=== PATIENT | female | born 1980 | race Caucasian/White ===

== ENCOUNTER → 2020-01-28 16:10 | Outpatient (BNVA) | payer OTHER, SELFPAY | PROVIDERS: Family Provider Family Medicine; Visit Provider Nurse Practitioner Women's Health | DX: Z01.419 Encounter for gynecological examination (general) (routine) without abnormal findings (principal); Z30.44 Encounter for surveillance of vaginal ring hormonal contraceptive device | CPT/HCPCS: 88175 ==

== ENCOUNTER → 2022-06-12 15:22 | Outpatient (BNVA) | payer OTHER, SELFPAY | PROVIDERS: Family Provider Family Medicine; Visit Provider Student in an Organized Health Care Education/Training Program | DX: S83.8X1A Sprain of other specified parts of right knee, initial encounter (principal); X58.XXXA Exposure to other specified factors, initial encounter | CPT/HCPCS: 73560; 73565 ==

== ENCOUNTER 2022-07-06 12:54 | Outpatient (CLI) | payer OTHER, SELFPAY ==
--- NOTE | 2022-07-06 13:00 | MR_ITS ---
WS: [id number] MRI RIGHT KNEE NONCONTRAST TECHNIQUE: Axial PD, coronal PD fat sat, coronal PD, sagittal PD, and sagittal PD fat-sat images obta ined. CLINICAL INFORMATION: knee pain COMPARISON: None. FINDINGS: Distal quadriceps and patella tendons are intact. Normal ACL and PCL. Tiny suprapatellar effusion. Mi ld chondromalacia patella. No subchondral edema. Normal medial and lateral patellar retinaculum. Ho[employer] D[employer] norma thinning of the medial and lateral meniscus advanced for patient this age. Horizontal tear involving the posterior horn medial meniscus extending to the articular surface. Per ipheral extrusion of the medial meniscus. Moderate joint space narrowing medial joint compartment wit h grade II to III chondromalacia. Medial and lateral collateral ligaments are intact. Normal popliteus. MR/MR knee RT wo con* [id number] IMPRESSION: 1. ACL and PCL are intact. 2. Horizontal tear involving posterior horn medial meniscus extends to the art icular surface. Peripheral extrusion of the medial meniscus. 3. 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 4. Mild chondromalacia patella with small effusion. 5. No other acute findings. Outbridge grading: grade III: partial-thickness cartilage loss with focal ulcer ation
== END 2022-07-06 12:55 | disposition home or self-care (01) ==
LOC: RAD 12:57
PROVIDERS: PCP Family Medicine; Visit Provider Student in an Organized Health Care Education/Training Program
DX: S83.249A Other tear of medial meniscus, current injury, unspecified knee, initial encounter (principal); X58.XXXA Exposure to other specified factors, initial encounter; M22.41 Chondromalacia patellae, right knee
CPT/HCPCS: 73721

== ENCOUNTER 2022-08-30 14:09 | Outpatient (CLI) | payer OTHER, SELFPAY ==
--- NOTE | 2022-08-30 14:20 | MM_ITS ---
WS: [id number] BILATERAL 3D TOMOSYNTHESIS DIGITAL SCREENING MAMMOGRAPHY WITH CAD CLINICAL INFORMATION: SCREENING HISTORY: Screening mammogram. No current complaints. COMPARISON: 2017 RIGHT breast diagnostic mammography TECHNIQUE: Bilateral CC and MLO views. FINDINGS: The breasts are composed of heterogeneous fibroglandular density tissue, which can limit the detectio n of small underlying mass lesions. No suspicious mass, asymmetry, calcifications, or architectural d istortion. No evidence of malignancy. A few incidental punctate calcifications. MM/[place] [id number] IMPRESSION: BI-RADS: 2-Benign FOLLOW UP: 1 Year Follow-up Recommend return to annual screening mammography.
== END 2022-08-30 14:10 | disposition home or self-care (01) ==
PROVIDERS: PCP Family Medicine; Visit Provider Nurse Practitioner Women's Health
DX: Z12.31 Encounter for screening mammogram for malignant neoplasm of breast (principal)
CPT/HCPCS: 77063; 77067

== ENCOUNTER 2022-11-14 06:42 | Day surgery (SDC) | payer OTHER, SELFPAY ==
[2022-11-13 11:06] VITALS: BMI 41.1
[2022-11-14] VITALS (12 sets, daily range): BP systolic 139–195; BP diastolic 76–119; PULSE 85–110; RESP 17–20; TEMP 36.1–36.7; O2SAT 94–100
[2022-11-14] MEDS: sodium chloride 0.9% 1,000 ML 30 ML IV (07:00)
[2022-11-14] MEDS: acetaminophen 1,000 MG/100 ML PIGGYBACK 400 MG IV (07:00)
[2022-11-14] MEDS: ketorolac 30 mg/mL INJ IVP (07:00)
[2022-11-14 07:02] LABS: OR HCG Qualitative Urine Negative (Negative)
--- NOTE | 2022-11-14 07:11 | ANES.PREANE2 ---
Pre-Anesthetic Assessment Height/Weight: Height 1.78 m Weight 130.181 kg Temp Pulse Resp BP Pulse Ox O2 Del Method 97.0 F L 100 18 195/119 98 Room Air 11/14/22 06:53 11/14/22 06:53 11/14/22 06:53 11/14/22 06:53 11/14/22 06:53 11/14/22 06:54 Preop Diagnosis: Right knee medial meniscus tear Operation Date: 11/14/22 08:10 Proposed Procedures p right knee diagnostic and surgical arthroscopy with partial medial meniscectomy.??[id number],S83.8X1A(Right) - Demetris Joy, Familial anesthetic complications: ponv Was Beta Nba taken within 24 hours: N/A Was Clonidine taken within 24 hours: N/A Last intake: Intake Last Liquid Date 11/13/22 Last Liquid Time 20:00 Last Solid Date 11/13/22 Last Solid Time 20:00 Social No alcohol and No tobacco Exam alert, oriented x 3, clear to auscultation bilaterally and regular rate & rhythm Airway Mallampati: Class II Dentition: full Metabolic Morbid Obesity Anesthetic Plan ASA status: 2 Anesthesia: General and Regional (specify below) Risk of > 500 ml blood loss (7ml/kg in children): No Medications/Allergies Home Medications Medication Instructions Recorded Confirmed Last Taken Type etonogestrel 0.12 mg-ethinyl 1 vag ring vaginal ONCE #3 ea 06/02/22 11/13/22 11/13/22 Rx estradiol 0.015 mg/24 hr vaginal ring (NuvaRing) Allergies Allergy/AdvReac Type Severity Reaction Status Date / Time butorphanol [From Stadol] AdvReac Mild dizziness Verified 11/14/22 06:47 Current Medications Generic Name Dose Route Start Last Admin Trade Name Freq PRN Reason Stop Dose Admin Sodium Chloride 1,000 mls @ 30 mls/hr 11/14/22 06:45 11/14/22 07:00 Sodium Chloride 0.9% IV 11/15/22 06:44 30 mls/hr .Q24H HOME Administration PFSH Anesthesia Medical History No pertinent past medical history neghx: htn,dm,thyroid,dvt/pe PCP: Dr. Bustamante Scoliosis Surgical History H/O hernia repair Performed by Dr. Juárez at [facility] in [place], [place] 3 different surgeries-- 2007, 2008, 2016-- 2016 had mesh H/O unilateral salpingectomy (06/04/14) Ruptured left tubal . Surgery performed by Dr. Saturnino Beard at [facility] in [place], [place] History of appendectomy Performed at [facility] in [place], [place] Previous back surgery (~1996) repeated in 1997 to shorten the metal rods Family History Mother Hypertension Diabetes Uterine cancer dx age 65 Cancer Non-Hodgkins Lymphoma Father Diabetes Sister Thyroid nodule under evaluation Denies family history of Colon cancer Ovarian cancer Heart disease Hyperlipidemia Breast cancer Family history of thyroid problem Stroke Social History Substance/Drug Use: never Female Reproductive History Date of last menstrual period: 11/06/22 Para: 2 Spontaneous abortions: Yes Data Anesthesia Cardiac Studies: No Data to Display
[2022-11-14] MEDS: scopolamine 1.5 Patch 1 PATCH TRANSDERMA (07:25)
--- NOTE | 2022-11-14 08:43 | P.HP_ITS ---
Same Day Surgery H&P Indication for Procedure/HPI DATE OF PROCEDURE: November 14, 2022 CHIEF COMPLAINT/INDICATIONFOR SURGICAL PROCEDURE: Right knee medial meniscus tear. No change in HPI from previous office visit on 10/09/2022. PREOP DIAGNOSIS: Right knee medial meniscus tear PLANNED PROCEDURE: Operation Date: 11/14/22 08:10 Proposed Procedures p right knee diagnostic and surgical arthroscopy with partial medial meniscectomy.??[id number],S83.8X1A(Right) - Demetris Joy DO Medications/Allergies* Allergies/Adverse Reactions Allergy/AdvReac Type Severity Reaction Status Date / Time butorphanol [From Stadol] AdvReac Mild dizziness Verified 11/14/22 06:47 Current Medications: Generic Name Dose Route Start Last Admin Trade Name Freq PRN Reason Stop Dose Admin Sodium Chloride 1,000 mls @ 30 mls/hr 11/14/22 06:45 11/14/22 07:00 Sodium Chloride 0.9% IV 11/15/22 06:44 30 mls/hr .Q24H HOME Administration Scopolamine 1 patch 11/14/22 06:45 11/14/22 07:25 Scopolamine 1.5 Patch TRANSDERMA 1 patch ONCE PRN Administration anesthetic related nausea Pertinent History/Comorbid Conditions* Medical History (Updated 06/22/22 @ 14:01 by Demetris Joy DO) No pertinent past medical history neghx: htn,dm,thyroid,dvt/pe PCP: Dr. Bustamante Scoliosis Surgical History (Updated 08/11/19 @ 09:21 by Margaret Hopkins, CATHERINE, WHRICH) H/O hernia repair Performed by Dr. Juárez at [facility] [place] [facility] in [place], [place] 3 different surgeries-- 2007, 2009, 2016-- 2016 had mesh H/O unilateral salpingectomy (06/04/14) Ruptured left tubal . Surgery performed by Dr. Saturnino Beard at [facility] [place] [facility] in [place], [place] History of appendectomy Performed at [facility] [place] [facility] in [place], [place] Previous back surgery (~1996) repeated in 1997 to shorten the metal rods Family History (Updated 03/16/22 @ 14:14 by Rosie Greenberg) Thyroid nodule Sister under evaluation Diabetes Mother Father Cancer Mother Non-Hodgkins Lymphoma Hypertension Mother Uterine cancer Mother dx age 65 Denies family history of Colon cancer Ovarian cancer Heart disease Hyperlipidemia Breast cancer Family history of thyroid problem Stroke Social History Substance/Drug Use: never Pertinent Exam Findings alert, oriented x 3, operative site marked and procedure specific exam findings Examination of the right knee demonstrates mild joint effusion.? Patient has near full range of motion but significant pain past 90 degrees. ? tenderness to palpation on the medial and lateral aspects.? On today's examination she has more pronounced tenderness to palpation medially.? She has a positive Margaret's? Negative Shelby's negative varus valgus stress.? Negative patellar grind.? No evidence of ligamentous instability. Recommendations Surgery/Procedure today Other Plans: Right knee medial meniscus tear plan for right knee diagnostic and surgical arthroscopy with partial medial meniscectomy versus repair is answered. She understands the ins and outs of the procedure Starz risk benefits complication alternatives surgery agrees to proceed with surgery. Coding Level of Care Code Acute Code for Chg Fwd Diagnoses
[2022-11-14] MEDS: ceFAZolin 2,000 MG in sodium chloride 0.9% (plus) 50 ML 100 MG IV (09:01)
[2022-11-14] MEDS: lidocaine-epi 2% 20 mL INJ INJECTION (09:30)
[2022-11-14] MEDS: ceFAZolin 1,000 MG in sodium chloride 0.9% (plus) 50 ML 100 MG IV (09:46)
--- NOTE | 2022-11-14 10:07 | PM.OP2 ---
Brief Operative Note Date of procedure: 11/14/22 Pre-op diagnosis: Right knee medial meniscus tear Post-op diagnosis: same (And chondromalacia) Procedure Done: Right knee diagnostic and surgical arthroscopy with partial medial meniscectomy Right knee diagnostic and surgical arthroscopy with medial and patellofemoral compartment chondroplasties Right knee diagnostic and surgical arthroscopy with extensive synovectomy of medial, lateral and patellofemoral compartments Surgeon: Demetris Joy Estimated blood loss (mL): 2 Complications: None Post-op Plan: Patient taken to PACU in stable condition recovering well pain controlled. Patient received appropriate discharge instructions as well as pain medication postoperatively. Patient will be allowed weightbearing as tolerated to the right lower extremity utilize crutches as needed. Follow-up in the orthopedic office in 2 weeks. Condition: stable Disposition: same day Coding Level of Care Code Acute Code for Clarence Herndon
--- NOTE | 2022-11-14 10:09 | PM.PACU ---
PACU note Narrative: Patient seen evaluated PACU she is recovering well pain controlled. Patient able to wiggle toes plantarflex dorsiflex ankle sensations intact light touch distally. Distal pulses are palpable. Dressings on in place clean dry and intact Exam: awake Disposition: discharged
[2022-11-14] MEDS: meperidine 50 mg/mL INJ 12.5 MG IVP (10:13)
--- NOTE | 2022-11-14 10:16 | PM.OP ---
Operative Report Date of procedure: November 14, 2022 Pre-op diagnosis: Preop Diagnosis Right knee medial meniscus tear Procedure: Post-op diagnosis: Right?knee?medial meniscus tear Right?knee?extensive synovitis Right?knee?Medial medial and patellofemoral chondromalacia Procedure done: Right?knee?diagnostic and surgical arthroscopy partial medial meniscectomy Right?knee?diagnostic and surgical arthroscopy with extensive synovectomy of the medial lateral and patellofemoral compartments Right?knee?diagnostic and surgical arthroscopy with medial and patellofemoral compartment chondroplasty Surgeon: Demetris Joy DO Estimated blood loss: 2mL Tourniquet: No tourniquet was used IV fluids: See anesthesia record Complications: None Findings: See operative report narrative Condition: stable Disposition: same day Brief History: Patient is a 42-year-old female with right?knee?pain.? Patient has failed conservative treatment who has been worked up for right??knee?pain in the outpatient setting. MRI findings consistent with tear of the medial meniscus tear.. talked in the office about treatment options patient would like to proceed with a right?knee?diagnostic and surgical arthroscopy with partial medial meniscectomy.? Patient understand the ins and outs of the procedure the risk benefits complication alternatives to treatment options.? Understanding risk of surgery they agree to proceed with surgical intervention.? Patient understand this may not provide patient with complete symptomatic relief of? pain as patient does have some underlying arthritis.? Understanding this and patient agree to proceed with surgical intervention all questions answered. Procedure: Patient seen and evaluated in the preoperative holding area.? Consent was reviewed and signed with patient.? Correct extremity was then marked.? Patient seen evaluated Anesthesia Department once cleared for surgery patient was taken back to the operative suite.? Patient was transported onto the OR table in supine position.? All bony prominences well-padded patient was appropriate secured to the bed.? Once appropriately anesthetized a nonsterile tourniquet was applied to the right thigh.? The right lower extremity was then prepped and draped in standard orthopedic fashion.? Final timeout performed.? Patient received appropriate preoperative antibiotics. Patient received local anesthetic of lidocaine with epinephrine into the joint as well as around the portal sites.? No tourniquet was inflated A standard 2 portal vertical incision diagnostic and surgical arthroscopy of the right?knee?was performed in standard fashion.? Small stab incision made in the inferolateral portal introduced trocar and arthroscope into the suprapatellar pouch.? Suprapatellar pouch was subsequently visualized and found to have significant synovitis but no loose bodies.? Patient had noticeable significant inflamed infrapatellar fat pad and thickening hypertrophic synovium and a small medial plica within the patellofemoral compartment.? ?The medial gutter was free of loose bodies I then introduced the arthroscope into the medial compartment.? Within the medial compartment I then established my inferior medial working portal utilizing spinal needle outside in technique.? Once established I then visualized our articular cartilage of the medial compartment with a valgus stress.? Patient was found to have grade 3 chondromalacia throughout the medial compartment.? Next I inspected the meniscus.? With an arthroscopic probe was utilized to visual? all aspects of the meniscus.? Meniscal root was found to be intact.? Meniscus was found to be torn at the body to posterior horn junction.? Tear was complex in nature with a radial and horizontal component. I then subsequently introduced a basket forceps as well as arthroscopic shaver to perform a partial medial meniscectomy to stable meniscal tissue and then utilized a thermal wand to anneal the edges.? Next, I then performed a synovectomy of the medial compartment.? Given patient's chondromalacia there was areas of unstable articular cartilage and I subsequently performed a chondroplasty with arthroscopic shaver and thermal wand.? This completed medial compartment work. Next a introduced the arthroscope to the intercondylar notch.? PCL and ACL were intact. patient had significant thickening of the infrapatellar fat pad spanning into the medial and lateral compartments.? I then performed an extensive synovectomy with the arthroscopic shaver of the patellofemoral medial and lateral compartments as well as the intercondylar notch. Advance the?scope into the retrocruciate space and no loose bodies were found. Next I introduced the arthroscope into the lateral compartment the lateral compartment was found to have grade 2 chondromalacia.? Lateral meniscus was found to be intact.? The root was intact.? Given the grade II chondromalacia there is no unstable cartilage pieces to perform chondroplasty.? This completed my work of the lateral compartment and then performed a synovectomy of the lateral compartment.? Next of the arthroscope was placed into the lateral gutter and this was free of loose bodies.? Finally I reintroduced the arthroscope into the patellofemoral compartment.? The patellofemoral was found to have grade 2-3 chondromalacia of the patellofemoral compartment. I utilized arthroscopic shaver to perform chondroplasty as well as a thermal wand to smooth out the edges of the patellofemoral space this was all taken to stable articular cartilage tissue. At this point I utilized arthroscopic shaver as well as thermal wand to perform extensive synovectomy of the patellofemoral compartment and excision of hypertrophic medial plica. This completed my work of the patellofemoral space.? I then switch my portal sites to the medial working portal.? Completed the rest of my synovectomy and the rest of my examination arthroscopy was normal. All fluid was suctioned from the joint.? ?All instruments were withdrawn.? Portal sites were closed with interrupted nylon suture.? portal sites were then covered with with Xeroform 4 x 4's ABD Curlex and Palmer wrap.? Patient was then subsequently awakened from anesthesia and taken to PACU in stable condition. Disposition: Patient taken to PACU in stable condition recovering well.? Will receive appropriate discharge structure as well as pain medication postoperatively as well as? DVT prophylaxis.we will have patient follow-up with us in the office in 2 weeks.? We will weightbearing as tolerated to the right lower extremity, utilizing crutches as needed to keep pain below threshold.? Patient understands and agrees with current plan.? All questions answered.
[2022-11-14] MEDS: labetalol 5 mg/mL SDV 20mL 10 MG IVP (10:21)
--- NOTE | 2022-11-14 10:30 | ANE.PACU2 ---
Inpatient post-anesthesia follow up: Airway intact: Yes Vital signs: Temperature 97.4 F Pulse Rate 89 Respiratory Rate 18 Blood Pressure 148/89 Pulse Oximetry 98 Oxygen Delivery Me thod Room Air Oxygen Flow Rate Fraction of Inspir ed Oxygen Hydration adequate: Yes Nausea and vomiting: Yes Pain level: 1 Mental status: Baseline
== END 2022-11-14 11:10 | disposition home or self-care (01) ==
PROVIDERS: Anesthesiology; PCP Family Medicine; Visit Provider Student in an Organized Health Care Education/Training Program
PROC: (CPT 29870; principal; 2022-11-14 08:00)
PROC: (CPT 29876; 2022-11-14 08:00)
DX: S83.241A Other tear of medial meniscus, current injury, right knee, initial encounter (principal); X58.XXXA Exposure to other specified factors, initial encounter; E66.01 Morbid (severe) obesity due to excess calories; Z68.41 Body mass index [BMI] 40.0-44.9, adult
CPT/HCPCS: 29876; 29881; 81025; 84703; J0131; J0690; J1100; J1885; J2175; J2250; J2405; J2704; J2795; J3010; J3490; J7030

== ENCOUNTER 2022-12-05 15:27 | Outpatient (RCR) | payer OTHER, SELFPAY | END 2023-01-04 23:59 | disposition home or self-care (01) | LOC: SPT 15:27 | PROVIDERS: Visit Provider Student in an Organized Health Care Education/Training Program | DX: Z47.89 Encounter for other orthopedic aftercare (principal) | CPT/HCPCS: 97110; 97161 ==

== ENCOUNTER 2024-04-16 14:48 | Outpatient (CLI) | payer OTHER, SELFPAY ==
--- NOTE | 2024-04-16 14:30 | MM_ITS ---
WS: [id number] BILATERAL 3D TOMOSYNTHESIS DIGITAL SCREENING MAMMOGRAPHY WITH CAD CLINICAL INFORMATION: Z12.39 - Encounter for other screening for malignant neop... HISTORY: Screening mammogram. No current complaints. COMPARISON: 2022 TECHNIQUE: Bilateral CC and MLO views. FINDINGS: The breasts are composed of heterogeneous fibroglandular density tissue, which can limit the detectio n of small underlying mass lesions. No suspicious mass, asymmetry, calcifications, or architectural d istortion. No evidence of malignancy. A few tiny incidental punctate calcifications. MM/MM [facility] tomosynthesis [id number] IMPRESSION: DENSITY: The breasts are heterogeneously dense, which may obscure small masses. BI-RADS: 2 - Benign FOLLOW UP: 1 Year Follow-up Recommend return to annual screening mammography.
== END 2024-04-16 14:49 | disposition home or self-care (01) ==
LOC: RAD 14:49
PROVIDERS: PCP Family Medicine; Visit Provider Nurse Practitioner Women's Health
DX: Z12.31 Encounter for screening mammogram for malignant neoplasm of breast (principal); R92.333 Mammographic heterogeneous density, bilateral breasts
CPT/HCPCS: 77063; 77067

== ENCOUNTER → 2025-03-17 15:53 | Outpatient (BNVA) | payer OTHER, SELFPAY | PROVIDERS: PCP Family Medicine; Visit Provider Nurse Practitioner Women's Health | DX: Z20.828 Contact with and (suspected) exposure to other viral communicable diseases (principal) | CPT/HCPCS: 86695; 86696 ==